=== PATIENT | female | born 1970 | race Caucasian/White ===

== ENCOUNTER 2021-02-18 18:30 | Emergency (ER) | payer OTHER ==
[~2021-02-18] VITALS: Ht 167.6 cm; Wt 86.2 kg
[2021-02-18 18:53] VITALS: BP 156/89
--- NOTE | 2021-02-18 21:02 | NUR ---
Patient discharged with v/s stable. Written and verbal after care instructions given and explained. Patient verbalized understanding. Ambulatory with steady gait. All questions addressed prior to discharge. Advised to follow up with PMD.
== END 2021-02-18 21:02 | disposition home or self-care (01) ==
LOC: MED 18:30
DX: S81.011D Laceration without foreign body, right knee, subsequent encounter (principal); Z88.5 Allergy status to narcotic agent; X58.XXXD Exposure to other specified factors, subsequent encounter
CPT/HCPCS: 73562; 99283